=== PATIENT | male | born 1995 | race Caucasian/White ===

== ENCOUNTER 2016-05-13 20:52 | Emergency (ER) | payer OTHER ==
[2016-05-13 21:06] VITALS: TEMP 98.7; BMI 25.8
[2016-05-13] MEDS ORDERED: ONDANSETRON 4 MG/2 ML VIAL IVPUSH ONE (21:49)
[2016-05-13] MEDS ORDERED: ONDANSETRON 4 MG/2 ML VIAL ONE (22:02)
[2016-05-13 22:04] LABS: BASOPHIL 0.2 % (0-2.0); EOSINOPHIL 0.2 % (0-4.5); MCH 29.2 pg (25.7-33.7); MCHC 34.7 g/dl (32.0-35.9); MEAN CELL VOLUME 84.1 fl (80-96); MEAN PLT VOLUME 8.6 fl (7.5-11.1); NEUTROPHILS 93.5 % (42.8-82.8); PLATELET COUNT 170 K/MM3 (134-434); RDW 13.1 % (11.9-15.9); WHITE BLOOD COUNT 12.3 K/mm3 (4.0-10.0)
[2016-05-13 22:31] LABS: ALBUMIN 4.1 g/dl (3.4-5.0); ANION GAP 9 (8-16); CALCIUM 8.6 mg/dL (8.5-10.1); CO2 29 mmol/L (21-32); CREATININE 1.1 mg/dL (0.7-1.3); GLUCOSE,RANDOM 135 mg/dL (74-106); SGOT/AST 18 U/L (15-37); SGPT/ALT 28 U/L (12-78)
[2016-05-13 22:33] LABS: ALK PHOS 77 U/L (45-117)
--- NOTE | 2016-05-13 22:39 | PDOC ---
History of Present Illness - History of Present Illness Initial Comments: 05/13/16 22:50 Patient is a 20 year old male with no significant medical hx who is presenting to the ED with fever, chills, nausea, vomiting, and diarrhea since this afternoon. The patient reports his last meal was breakfast this morning where he had a normal breakfast with eggs and almond milk. The patient's symptoms began around 1PM this afternoon and have remained persistent since. He complains of some pain to his joints including his wrists and knees. The patient also endorses some generalized abdominal pain that has resolved by his interview in the ED. He now reports some intermittent cramps. Patient denies cough, sore throat, difficulty swallowing, nasal congestion, shortness of breath, chest pain, bloody stools, mucous in stools, sick contacts , or past abdominal surgeries. <Sanjana Valenzuela - Last Filed: 05/13/16 22:50> <Néstor Lovell - Last Filed: 05/14/16 00:27> - General Chief Complaint: Pain Stated Complaint: NAUSEA/VOMITING/ABD PAIN Past History <Sanjana Valenzuela - Last Filed: 05/13/16 22:50> - Immunization History Immunization Up to Date: Yes - Psycho/Social/Smoking Cessation Hx Anxiety: No Suicidal Ideation: No Smoking Status: No Smoking History: Never smoked Have you smoked in the past 12 months: No Number of Cigarettes Smoked Daily: 0 Information on smoking cessation initiated: No Hx Alcohol Use: No Drug/Substance Use Hx: No Substance Use Type: None <Néstor Lovell - Last Filed: 05/14/16 00:27> - Past Medical History Allergies/Adverse Reactions: Allergies Allergy/AdvReac Type Severity Reaction Status Date / Time No Known Allergies Allergy Verified 05/13/16 21:03 Home Medications: Ambulatory Orders Loperamide HCl [Imodium -] 2 mg PO BID #14 capsule 05/14/16 Ondansetron [Zofran *Odt*] 8 mg SL TID #30 od.tablet 05/14/16 Review of Systems - Review of Systems Comments:: 05/13/16 22:55 GENERAL/CONSTITUTIONAL: Fever, chills. No weakness. HEAD, EYES, EARS, NOSE AND THROAT: No change in vision. No ear pain or discharge. No sore throat. CARDIOVASCULAR: No chest pain or shortness of breath. RESPIRATORY: No cough, wheezing, or hemoptysis. GASTROINTESTINAL: Nausea, vomiting, diarrhea, abdominal pain and cramping. No constipation. GENITOURINARY: No dysuria, frequency, or change in urination. MUSCULOSKELETAL: Joint pain. No neck or back pain. SKIN: No rash NEUROLOGIC: No headache, vertigo, loss of consciousness, or change in strength/ sensation. <Sanjana Valenzuela - Last Filed: 05/13/16 22:50> *Physical Exam - Vital Signs Last Vital Signs Temp Pulse Resp BP Pulse Ox 98.7 F 89 14 114/64 94 L 05/13/16 21:04 05/13/16 21:04 05/13/16 21:04 05/13/16 21:04 05/13/16 21:04 - Physical Exam Comments: 05/13/16 22:57 GENERAL: Awake, alert, and fully oriented, in no acute distress HEAD: No signs of trauma EYES: PERRLA, EOMI, sclera anicteric, conjunctiva clear ENT: Auricles normal inspection, hearing grossly normal, nares patent, oropharynx clear without exudates. Dry mucosa NECK: Normal ROM, supple, no lymphadenopathy, JVD, or masses LUNGS: Breath sounds equal, clear to auscultation bilaterally. No wheezes, and no crackles HEART: Regular rate and rhythm, normal S1 and S2, no murmurs, rubs or gallops ABDOMEN: Soft, nontender, normoactive bowel sounds. No guarding, no rebound. No masses EXTREMITIES: Normal range of motion, no edema. No clubbing or cyanosis. No cords, erythema, or tenderness NEUROLOGICAL: Cranial nerves II through XII grossly intact. Normal speech, normal gait SKIN: Warm, Dry, normal turgor, no rashes or lesions noted. ENDOCRINE: No increased thirst. No abnormal weight change. HEMATOLOGIC/LYMPHATIC: No anemia, easy bleeding, or history of blood clots. ALLERGIC/IMMUNOLOGIC: No hives or skin allergy. <Sanjana Valenzuela - Last Filed: 05/13/16 22:50> - Vital Signs Last Vital Signs Temp Pulse Resp BP Pulse Ox 98.7 F 89 14 114/64 94 L 05/13/16 21:04 05/13/16 21:04 05/13/16 21:04 05/13/16 21:04 05/13/16 21:04 <Néstor Lovell Casey - Last Filed: 05/14/16 00:27> ED Treatment Course - LABORATORY CBC & Chemistry Diagram: 05/13/16 21:50 05/13/16 21:50 - ADDITIONAL ORDERS Additional order review: Laboratory Results 05/13/16 21:50 Sodium 141 Potassium 4.1 Chloride 103 Carbon Dioxide 29 Anion Gap 9 BUN 16 Creatinine 1.1 Creat Clearance w eGFR > 60 Random Glucose 135 H Calcium 8.6 Total Bilirubin 1.0 AST 18 ALT 28 Alkaline Phosphatase 77 Total Protein 7.0 Albumin 4.1 Lipase 89 05/13/16 21:50 RBC 5.23 MCV 84.1 MCHC 34.7 RDW 13.1 MPV 8.6 Neutrophils % 93.5 H Lymphocytes % 1.9 L Monocytes % 4.2 Eosinophils % 0.2 Basophils % 0.2 - Medications Given in the ED: ED Medications Discontinued Medications Generic Name Dose Route Start Last Admin Trade Name Freq PRN Reason Stop Dose Admin Ondansetron HCl 4 mg 05/13/16 21:49 05/13/16 22:05 Zofran Injection IVPUSH 05/13/16 21:50 4 mg ONCE ONE Administration <Sanjana Valenzuela - Last Filed: 05/13/16 22:50> - LABORATORY CBC & Chemistry Diagram: 05/13/16 21:50 05/13/16 21:50 - ADDITIONAL ORDERS Additional order review: Laboratory Results 05/13/16 21:50 Sodium 141 Potassium 4.1 Chloride 103 Carbon Dioxide 29 Anion Gap 9 BUN 16 Creatinine 1.1 Creat Clearance w eGFR > 60 Random Glucose 135 H Calcium 8.6 Total Bilirubin 1.0 AST 18 ALT 28 Alkaline Phosphatase 77 Total Protein 7.0 Albumin 4.1 Lipase 89 05/13/16 21:50 RBC 5.23 MCV 84.1 MCHC 34.7 RDW 13.1 MPV 8.6 Neutrophils % 93.5 H Lymphocytes % 1.9 L Monocytes % 4.2 Eosinophils % 0.2 Basophils % 0.2 - Medications Given in the ED: ED Medications Discontinued Medications Generic Name Dose Route Start Last Admin Trade Name Freq PRN Reason Stop Dose Admin Ondansetron HCl 4 mg 05/13/16 21:49 05/13/16 22:05 Zofran Injection IVPUSH 05/13/16 21:50 4 mg ONCE ONE Administration <Néstor Lovell - Last Filed: 05/14/16 00:27> Medical Decision Making - Medical Decision Making 05/14/16 00:26 20yo m with one afternoon of mild GI symptoms; he looks well on PE; labs unremarkable and he has good response to medication. He is encourage to aggressively hydrate and nutrition as tolerated. He has been instructed to follow up with the PMD within the next 48 hours. <Néstor Lovell - Last Filed: 05/14/16 00:27> *DC/Admit/Observation/Transfer - Attestations Scribe Attestion: 05/13/16 22:57 Documentation prepared by Sanjana Valenzuela, acting as clinical laboratory medical director for Néstor Lovell MD. <Sanjana Valenzuela - Last Filed: 05/13/16 22:50> - Discharge Dispostion Admit: No Decision to Admit order Date/Time: 05/14/16 00:22 - Attestations Physician Attestion: 05/14/16 00:25 I, Dr. Néstor Lovell MD, attest that this document has been prepared under my direction and personally reviewed by me in its entirety. I further attest, that it accurately reflects all work, treatment, procedures and medical decision -making performed by me. <[place] - Last Filed: 05/14/16 00:27> Diagnosis at time of Disposition: Viral gastroenteritis Nausea & vomiting Qualifiers: Vomiting type: unspecified Vomiting Intractability: non-intractable Qualified Code(s): R11.2 - Nausea with vomiting, unspecified - Discharge Dispostion Disposition: HOME Condition at time of disposition: Good - Prescriptions Prescriptions: Loperamide HCl [Imodium -] 2 mg PO BID #14 capsule Ondansetron [Zofran *Odt*] 8 mg SL TID #30 od.tablet - Referrals Referrals: Esdras López MD, MD [Primary Care Provider] - - Patient Instructions Additional Instructions: At this time, your symptoms are likely related to viral stomach/GI irritation. The symptoms should start to decrease in the next few days and you should aggressively hydrate yourself and nutrition as tolerated. Please follow up with your PMD within the next 48 hours and if there is any change otherwise in your symptoms, please return immediately to the ED.
[2016-05-14] MEDS ORDERED: ONDANSETRON 4 MG/2 ML VIAL ONE (00:22)
[2016-05-14] MEDS ORDERED: ONDANSETRON 4 MG/2 ML VIAL IVPUSH ONE (00:23)
[2016-05-14 00:32] VITALS: BP 118/70; PULSE 79
== END 2016-05-14 00:37 | disposition home or self-care (01) ==
LOC: JER 20:52
PROC: 3E033GC Introduction of Other Therapeutic Substance into Peripheral Vein, Percutaneous Approach (ICD-10-PCS; principal; 2016-05-13)
DX: A08.4 Viral intestinal infection, unspecified (principal); B97.89 Other viral agents as the cause of diseases classified elsewhere
CPT/HCPCS: 36415; 80053; 83690; 85025; 99284-25